=== PATIENT | female | born 1985 | race Caucasian/White ===

== ENCOUNTER 2019-04-07 09:20 | Day surgery (SDC) | payer SELFPAY ==
[2019-04-06 11:13] VITALS: BMI 26.0
[2019-04-07] MEDS ORDERED: BACITRACIN 15 GM TUBE TOPICAL OINTMENT ONE (09:51)
[2019-04-07] MEDS ORDERED: EPINEPHrine/PF 1 MG/1 ML (1:1,000) AMPULE ONE ×2 (09:51→10:58)
[2019-04-07] MEDS ORDERED: LIDOCAINE HCL 1%, 10 MG/ML (20ML VIAL) ONE ×3 (09:51→11:01)
[2019-04-07] MEDS ORDERED: LIDOCAINE 1%-EPI 1:100,000 30 ML MDV IJ ONE (09:51)
[2019-04-07] MEDS ORDERED: SODIUM BICARBONATE 8.4% - 50 ML ONE ×2 (09:53→10:59)
[2019-04-07 10:27] LABS: BASO % 0.6 % (0-2.0); EOS % 0.3 % (0-4.5); HEMOGLOBIN 12.2 GM/dL (10.7-15.3); LYMPH % 35.5 % (8-40); MCH 26.2 pg (25.7-33.7); MEAN CELL VOLUME 81.6 fl (80-96); MEAN PLT VOLUME 9.3 fl (7.5-11.1); MONO % 11.8 % (3.8-10.2); NEUT % 51.8 % (42.8-82.8); PLATELET COUNT 256 K/MM3 (134-434); RBC 4.65 M/mm3 (3.60-5.2); RDW 13.7 % (11.6-15.6); WHITE BLOOD COUNT 5.6 K/mm3 (4.0-10.0)
[2019-04-07 10:32] LABS: HCG,QUALITATIVE URINE Negative
[2019-04-07 10:37] LABS: EPI CELLS 10.7 /HPF (0-5/HPF); HYALINE CASTS 36 /lpf (0-8); URINE APPEARANCE CLOUDY; URINE BACTERIA 8830.1 /hpf (NEGATIVE); URINE BILIRUBIN NEGATIVE (NEGATIVE); URINE COLOR YELLOW; URINE GLUCOSE (UA) NEGATIVE (NEGATIVE); URINE KETONE TRACE (NEGATIVE); URINE LEUK ESTERASE NEGATIVE (NEGATIVE); URINE NITRITE POSITIVE (NEGATIVE); URINE PROTEIN NEGATIVE (NEGATIVE); URINE RBC 2 /hpf (0-4); URINE UROBILINOGEN 0.2 mg/dL (0.2-1.0); URINE WBC 2 /hpf (0-5)
[2019-04-07] MEDS ORDERED: fentaNYL CITRATE 250 MCG/5 ML VIAL ONE ×2 (10:40→13:18)
[2019-04-07] MEDS ORDERED: MIDAZOLAM HCL 2 MG/2 ML SINGLE DOSE VIAL ONE (10:40)
[2019-04-07] MEDS ORDERED: PROPOFOL 20 ML ONE (10:40)
[2019-04-07] MEDS ORDERED: DEXAMETHASONE SOD PHOSPHATE 4 MG/1 ML VIAL ONE ×2 (10:41→15:55)
[2019-04-07] MEDS ORDERED: ceFAZolin SODIUM 1 GM VIAL ONE (10:41)
[2019-04-07] MEDS ORDERED: LIDOCAINE HCL/PF 2% SDV 5ML VIAL ONE (10:41)
[2019-04-07] MEDS ORDERED: ROCURONIUM BROMIDE 50 MG/5 ML SYRINGE ONE (10:47)
[2019-04-07] MEDS ORDERED: ceFAZolin SODIUM 1 GM VIAL IVPB ONE (11:36)
[2019-04-07] MEDS ORDERED: BUPIVACAINE HCL/PF 0.25% (2.5MG/ML) 10 ML VIAL IJ ONE (11:40)
[2019-04-07] MEDS ORDERED: LIDOCAINE 1%/EPI 1:100000 (50 ML MULTI DOSE VIAL) NR ONE (11:40)
[2019-04-07] MEDS ORDERED: PROMETHAZINE HCL 25 MG/1 ML VIAL IVPUSH PRN (14:25)
[2019-04-07] MEDS ORDERED: ONDANSETRON 4 MG/2 ML VIAL IVPUSH PRN ×2 (14:25→16:24)
[2019-04-07] MEDS ORDERED: LACTATED RINGERS SOLUTION 1,000 ML IV SCH ×2 (14:30→16:30)
[2019-04-07] MEDS ORDERED: DESFLURANE GAS 240 ML BOTTLE IH ONE (14:51)
[2019-04-07] MEDS ORDERED: GLYCOPYRROLATE 0.2 MG/1 ML VIAL ONE (15:58)
[2019-04-07] MEDS ORDERED: NEOSTIGMINE METHYLSULFATE 0.5 MG/ML - 10 ML MDV ONE (15:58)
[2019-04-07] MEDS ORDERED: ACETAMINOPHEN 325 MG TABLET (FP) PO PRN (16:24)
[2019-04-07] MEDS ORDERED: ACETAMINOPHEN 325 MG TABLET (FP) ONE (18:13)
[2019-04-07] MEDS ORDERED: ACETAMINOPHEN 325 MG TABLET (FP) PO ONE (18:15)
[2019-04-07] MEDS ORDERED: ONDANSETRON 4 MG/2 ML VIAL ONE (18:59)
[2019-04-07] MEDS ORDERED: ONDANSETRON 4 MG/2 ML VIAL IVPUSH ONE (19:00)
[2019-04-07 20:13] VITALS: BP 96/45; PULSE 76; TEMP 98.4
--- NOTE | 2019-04-10 14:06 | OP ---
DATE OF OPERATION: 04/07/2019 PREOPERATIVE DIAGNOSES: 1. Bilateral breast ptosis. 2. Lipodystrophy of abdomen, flanks, thighs, back, and bilateral buttocks. POSTOPERATIVE DIAGNOSES: 1. Bilateral breast ptosis. 2. Lipodystrophy of abdomen, flanks, thighs, back, and bilateral buttocks. PROCEDURES: 1. Bilateral mastopexy. 2. Liposuction of abdomen, bilateral flanks, bilateral medial thighs, and back. 3. Autologous fat transfer to bilateral buttocks. ATTENDING SURGEON: Forrest Wilkinson MD ANESTHESIA: General endotracheal. ESTIMATED BLOOD LOSS: 20 mL. SPECIMEN: None. DRAINS: None. COMPLICATIONS: None. CONDITION: Stable to recovery room, extubated. INDICATIONS: The patient has a history of bilateral breast augmentation approximately 8 years ago. She now presents with bilateral breast tissue inferior descent with herniation of the nipple areolar complex and breast mound over the implants. The implant capsules are soft and there is no evidence of capsular contracture and/or implant rupture. In addition, the patient has lipodystrophy of her abdomen, flanks, thighs, and back. She desires correction of these areas with autologous fat transfer to bilateral buttocks. The risks, benefits, and alternatives of the planned procedures were discussed with the patient preoperatively with the aid of a registered respiratory technician and all questions were answered. The risks include but are not limited to bleeding, infection, pain, need for revision or further surgery, partial or complete nipple loss, decreased or absent nipple sensation, residual breast deformity, residual breast asymmetry, damage to neighboring structures including nerves, arteries, veins, and tendons. The patient understands these risks and has elected to proceed with surgery. PROCEDURE: After proper identification and marking the patient in the preoperative holding area, the patient was transported to the operating room, placed supine on the table, and noninvasive anesthesia monitors were applied. Intravenous access was established. General anesthesia was administered and the patient was intubated without difficulty. SCD boots were applied to bilateral lower extremities. Intravenous antibiotics were then given. At this point, the patient's bilateral breasts as well as abdomen, flanks, and bilateral medial thighs were prepped and draped in the usual sterile fashion. After a timeout was performed, local anesthetic mixture of 1% lidocaine with 1:100,000 units of epinephrine mixed in a 1:1 fashion with 0.25% Marcaine was infiltrated along the planned incision lines of bilateral breasts, umbilicus, and bilateral groin creases. A total of 30 mL was injected. At this point, attention was turned towards the right breast, where a 42-mm cookie cutter was centered around the nipple-areolar complex. This incision was then made with a number 15 blade. The vertical mastopexy pattern incision was then incised and the skin to be resected was de-epithelialized and passed off the field to be discarded. At this point, electrocautery was used to develop subcutaneous flaps inferolaterally and inferomedially of the right breast. This was continued down to the level of the chest wall just above the pectoralis major fascia. The underlying breast implant and capsule were visualized. Electrocautery was then used to mobilize the inferior breast mound as well as the underlying breast implant and capsule just above the level of the chest wall. Once adequate mobilization of the breast tissue and capsule had been performed, a 2-0 Vicryl suture was used to elevate and inset the breast mound and underlying capsule to the chest wall in a simple interrupted fashion. Once the parenchymal remolding had been completed, the nipple-areolar complex was mobilized by incision of the dermis along the vertical limbs, with care taken to maintain a superior dermoglandular pedicle. The nipple-areolar complex was then transposed and was inset using a 3-0 Monocryl in a buried deep dermal fashion, followed by a 4-0 nylon in simple running fashion. The vertical limb was then temporarily stapled closed. There was noted to be a very good correction of the patient's preoperative breast deformity and therefore the vertical limb was closed in a layered fashion using a 2-0 Vicryl in a buried deep dermal fashion, followed by a 3-0 Monocryl in a buried deep dermal fashion, and finally a 4-0 Monocryl in a running subcuticular fashion. Once the right breast closure was completed, attention was turned towards the left breast, where the exact same procedures were performed and therefore only 1 side will be dictated. At this point, stab incisions were made at the 12 and 6 o'clock position of the umbilicus as well as along bilateral groin creases. Standard tumescent solution was then infiltrated into the subcutaneous tissue of the abdomen, bilateral flanks, and bilateral medial thighs, a total of 2 L of tumescent solution were infiltrated. Once an adequate amount of time was given for this to take effect, the Micro[employer]ire system was loaded with a 5-mm cannula and was used to harvest lipoaspirate from the subcutaneous plane of the abdomen, bilateral flanks, and bilateral medial thighs. The lipoaspirate was collected into the [employer] collection system for later processing. Two separate rounds of [employer] processing were performed, and the isolated adipocytes were loaded into 10 mL syringes in preparation for autologous fat transfer. Once all of the redundant subcutaneous fat had been harvested, the access incisions at the umbilicus and groin creases were closed with a 5-0 plain gut in simple interrupted fashion and the areas were dressed with dry sterile gauze and Tegaderm. The breasts were dressed with Mastisol and Steri-Strips. At this point, the drapes were taken down, the patient was carefully flipped into a prone position, with care taken to avoid any pressure on the breasts with the use of gel rolls. At this point, the patient's back and bilateral buttocks were prepped and draped in the usual sterile fashion. the same local anesthetic mixture that had been used earlier was now used to infiltrate the planned stab incisions of the upper back in the bra line, the superior aspect of the gluteal fold, and bilateral inferior gluteal fold creases. A total of 5 mL was injected. A number 15 blade was used to make all stab incisions. Another liter of standard tumescent solution was then infiltrated into the subcutaneous tissue of the back and bilateral posterior flanks. The MicroAire system was then used to harvest more lipoaspirate from these areas, and again it was collected into the [employer] collection basin in preparation for processing. The access incisions of the upper back were closed with a 4-0 PDS in a buried deep dermal fashion, followed by a 5-0 plain gut in a simple interrupted fashion and the same sterile dressing that was used on the front was placed on the back. At this point, all of the isolated adipocytes that had been loaded into 10 mL syringes were now brought up into the field in preparation for autologous fat transfer. Using a modified Wesley technique, the adipocytes were layered into the subcutaneous plane of bilateral buttocks, with care taken to layer them from multiple directions. A total of 300 mL were injected into each buttocks, and there was noted to be a significant improvement in the patient's preoperative lipodystrophy. The access incisions of the superior and inferior gluteal creases were closed with a 5-0 plain gut in a simple interrupted fashion and dry sterile gauze dressings were placed. At this point, the patient was carefully flipped back into the supine position. A compression garment was placed and at this point the patient was slowly awakened and was extubated without incident and was transported to recovery room in stable condition. FORREST WILKINSON M.D. [id number]
== END 2019-04-07 20:10 | disposition home or self-care (01) ==
LOC: JASU-SURG 09:20
PROVIDERS: ATTEND Plastic Surgery
CPT/HCPCS: 36415; 81003; 84703; 85025; 94760